=== PATIENT | male | born 1995 | race Caucasian/White ===

== ENCOUNTER 2017-03-14 12:44 | Emergency (ER) | payer SELFPAY ==
[~2017-03-14] VITALS: Ht 165.1 cm; Wt 107.0 kg
[~2017-03-14 12:44] MED LIST: CYCL-319 PO; DICL50TA11 PO; HYDR-3498 PO
[2017-03-14 12:53] VITALS: Ht 165.1 cm; Wt 107.0 kg
== END 2017-03-14 15:38 | disposition left against medical advice (07) ==
LOC: FTE 12:44
DX: Z53.21 Procedure and treatment not carried out due to patient leaving prior to being seen by health care provider (principal)

== ENCOUNTER 2017-07-29 19:49 | Emergency (ER) | END 2017-07-29 20:19 | disposition left against medical advice (07) ==

== ENCOUNTER 2017-07-29 22:14 | Emergency (ER) | END 2017-07-30 00:54 | disposition home or self-care (01) ==